=== PATIENT | male | born 1970 | race Caucasian/White ===

== ENCOUNTER 2016-07-01 20:01 | Emergency (ER) | payer OTHER | END 2016-07-01 21:38 | disposition home or self-care (01) | LOC: ER1 20:01 | DX: L03.116 Cellulitis of left lower limb (principal); Z88.2 Allergy status to sulfonamides; Z23 Encounter for immunization | CPT/HCPCS: 90471; 90714; 99283 ==

== ENCOUNTER 2016-07-19 11:43 | Emergency (ER) | payer OTHER ==
[2016-07-19 13:02] LABS: HEMOGLOBIN 14.5 gm/dl (14.0-17.5); RED BLOOD COUNT 5.11 M/UL (4.20-5.50); WHITE BLOOD COUNT 11.9 K/UL (4.5-11.0)
== END 2016-07-19 15:33 | disposition home or self-care (01) ==
LOC: ER1 11:43
PROVIDERS: Physician Assistant
DX: N20.1 Calculus of ureter (principal); J45.909 Unspecified asthma, uncomplicated; Z87.442 Personal history of urinary calculi; Z88.2 Allergy status to sulfonamides
CPT/HCPCS: 36415; 80053; 81001; 83690; 85025; 96361; 96374; 96375; 96376; 99284; J2270; J2405; J7030

== ENCOUNTER 2016-07-25 20:14 | Emergency (ER) | payer OTHER ==
[2016-07-25 22:10] LABS: RED BLOOD COUNT 5.26 M/UL (4.20-5.50); WHITE BLOOD COUNT 9.5 K/UL (4.5-11.0)
[2016-07-25 22:31] LABS: BUN/CREATININE RATIO 13 (0-10)
== END 2016-07-26 01:11 | disposition home or self-care (01) ==
LOC: ER1 20:14
PROVIDERS: Physician Assistant
DX: R10.9 Unspecified abdominal pain (principal); N20.1 Calculus of ureter; R10.814 Left lower quadrant abdominal tenderness; R31.9 Hematuria, unspecified; J45.909 Unspecified asthma, uncomplicated; Z87.891 Personal history of nicotine dependence; Z87.442 Personal history of urinary calculi; Z88.2 Allergy status to sulfonamides
CPT/HCPCS: 36415; 80053; 81001; 83690; 85025; 87086; 96374; 96375; 96376; 99284; J2270; J2405